=== PATIENT | male | born 1940 | race Caucasian/White ===

== ENCOUNTER 2016-12-26 05:16 | Emergency (ER) | payer OTHER ==
[~2016-12-26] VITALS: Ht 172.7 cm; Wt 97.1 kg
[~2016-12-26 05:16] MED LIST: BISACODYL10 MG PR; CELEBREX 100MG100 MG PO; ELIQUIS5 MG PO; ENALAPRIL10 MG PO; FISH OIL CONCEN1 SGL PO; MILK OF MAGNESI30 ML PO; NORVASC 5MG TAB5 MG PO; PERCOCET 325 MG1 TA2 PO; VALIUM 10 MG. T10 MG PO; ZETIA10 MG PO
--- NOTE | 2016-12-26 07:48 | ED UPPER/LOWER EXTREMITY COMPL ---
See Addendum History of Present Illness General Chief Complaint: Lower Extremity Problems Stated Complaint: BILATERIAL LEG SWELLING AND RIGHT FOOT PAIN Source: patient Exam Limitations: no limitations Vital Signs & Intake/Output Vital Signs & Intake/Output Vital Signs Date Time Temp Pulse Resp B/P Pulse O2 O2 Flow FiO2 Ox Delivery Rate 12/26 1104 98 12/26 1024 96.9 94 18 134/82 96 12/26 0749 96.8 102 18 139/89 97 12/26 0519 98.2 111 18 162/99 95 Room Air Allergies Coded Allergies: NO KNOWN ALLERGIES (06/03/15) Reconcile Medications Amlodipine (Norvasc 5MG Tab) 5 MG TAB 1 TAB PO DAILY BP (Reported) Apixaban (Eliquis) 5 MG TAB 0 PO SEE ADMIN CRITERIA dvt 2 tabs 2 times daily for 1 week then 1 tab 2 times a day for 11 weeks Bisacodyl 10 MG SUP [address] DAILY NEEDED PRN CONSTIPATION Celecoxib (Celebrex) 100 MG CAP 200 MG PO BID PRN pain Diazepam (Valium 10 Mg. 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 PT STATES HE GETS SWELLING IN LEGS FROM TIME TO TIME BUT THIS TIME IT IS BAD. PT PRESENTS WITH BLE REDNESS AND SWELLING THAT IS WARM TO THE TOUCH. PT STATES THAT EVERYTHING IRRITATES THE LEGS NOW. PT ALSO COMPLAINS OF PAIN FROM ANKLES TO TOES AND STATES THAT HE IS UNABLE TO WIGGLE TOES AND UNABLE TO WALK AT THIS TIME DUE TO THE PAIN AND SWELLING. Triage Nurses Notes Reviewed? yes HPI: Patient presents for evaluation of bilateral lower extremity pain and swelling that began about 1 week ago. Patient saw his primary care doctor and diagnosed with bronchitis and placed on amoxicillin. Since taking the amoxicillin patient has noticed bilateral leg swelling became worse overnight. In addition he is having left leg pain. He states his legs are also feeling weak. Patient has also noticed redness of both legs anteriorly. Patient states that he is still experiencing a productive cough despite the use of the amoxicillin. Patient had a left leg DVT a few years ago postoperatively. Patient describes symptoms as constant severe and worsening. Nothing seems to make it feel better. Addition patient states he has had diminished urine output and some mild dysuria. Past History Travel History Traveled to [place] past 21 day No Medical History Any Pertinent Medical History? see below for history Neurological: NONE EENT: hearing loss Cardiovascular: hypertension, hyperlipidemia Respiratory: NONE Gastrointestinal: NONE Hepatic: NONE Renal: NONE Musculoskeletal: disk herniation Psychiatric: NONE Endocrine: NONE Blood Disorders: BLOOD CLOTS L LOWER Cancer(s): NONE PHYSICAL SECURITY ENGINEER/Reproductive: NONE History of MRSA: No History of VRE: No History of CDIFF: No Surgical History Surgical History: spinal fusion Psychosocial History Who do you live with Spouse Services at Home None What is your primary language Czech Tobacco Use: Never used ETOH Use: occasional use Illicit Drug Use: denies illicit drug use Family History Hx Contributory? No Review of Systems Review of Systems Constitutional: Reports: no symptoms. EENTM: Reports: no symptoms. Respiratory: Reports: no symptoms. Cardiovascular: Reports: no symptoms. Gastrointestinal/Abdominal: Reports: no symptoms. Genitourinary: Reports: no symptoms. Musculoskeletal: Reports: see HPI. Skin: Reports: see HPI. Neurological/Psychological: Reports: no symptoms. Hematologic/Endocrine: Reports: no symptoms. Immunological: Reports: no symptoms. All Other Systems: Reviewed and Negative Physical Exam Physical Exam General Appearance: SEE BELOW Comments: Gen.: Well-nourished, well-developed, no acute respiratory distress. Head: Normocephalic, atraumatic. Eyes: Normal inspection bilaterally Ears: Normal inspection bilaterally Nose: Normal inspection Throat/mouth : Moist mucosa Neck: Supple, full range of motion, no goiter Heart: Regular rate and rhythm, no murmurs rubs or gallops Lungs: wheezes and Rhonchi bilaterally with otherwise good air entry, moderate bronchospastic cough Chest: Nontender Back: Normal range of motion Abdomen: Soft, nontender, nondistended, normal bowel sounds Extremities: Normal range of motion grossly, equal radial pulses, bilateral 1-2+ pitting lower extremity edema with mild erythema/chroni stasis dermatitis changes of the anterior legs with diffuse left lower extremity tenderness Neurologic: Cranial nerves grossly intact, speech is clear Skin: warm and dry Psychiatric: Calm, cooperative, no apparent delusions or hallucinations Progress Differential Diagnosis: dvt, pe, BRONCHITIS, PNEUMONIA, CELLULITIS, CONGESTIVE HEART FAILURE, RENAL DISEASE Plan of Care: Orders Procedure Date/time Status Add-on Test (ER Only) 12/26 08 Active URIC ACID 12/26 608 Complete BLOOD CULTURE 12/26 554 Active BLOOD CULTURE 12/26 553 Active LACTIC ACID 12/26 553 Complete D-DIMER 12/26 553 Complete COMPREHENSIVE METABOLIC PANEL 12/26 553 Complete CBC WITHOUT DIFFERENTIAL 12/26 553 Complete Laboratory Tests 12/26/16 0854: Lactic Acid Cancelled 12/26/16 0815: CBC w Diff NO MAN DIFF REQ, RBC 5.59, MCV 89.2, MCH 30.0, RDW 13.6, MPV 8.6, Gran % 75.6 H, Lymphocytes % 13.8 L, Monocytes % 9.7 H, Eosinophils % 0.9, Basophils % 0 L, Absolute Granulocytes 7.1 H, Absolute Lymphocytes 1.3, Absolute Monocytes 0.9 H, Absolute Eosinophils 0.1, Absolute Basophils 0, PUBS MCHC 33.6 12/26/16 0609: Anion Gap 11, Estimated GFR > 60, BUN/Creatinine Ratio 20.0, Glucose 124 H, Lactic Acid 2.3 H, Uric Acid 5.6, Calcium 10.4 H, Total Bilirubin 0.8, AST 52, ALT 62, Alkaline Phosphatase 81, Total Protein 7.3, Albumin 4.4, Globulin 2.9, Albumin/Globulin Ratio 1.5, D-Dimer 423 H Microbiology 12/26 608 BLOOD: Blood Culture - RECD 12/27 555 BLOOD: Blood Culture - RECD Diagnostic Imaging: Discussed w/RAD: Ultrasound. Radiology Impression: PATIENT: JUSTA FELIZ PRESENT AGE: 76 PATIENT ACCOUNT NO: [id number] : 42 LOCATION: [facility] ORDERING PHYSICIAN: CORWIN COTTO MD SERVICE DATE: 12/26/16 EXAM TYPE: US - US-EXT BILAT VENOUS DOPPLER EXAMINATION: US TRIPLEX LOWER EXTREMITY, BILATERAL CLINICAL INFORMATION: Evaluate for deep vein thrombosis. COMPARISON: None TECHNIQUE: Color-flow triplex imaging with spectral analysis and compression Doppler were performed on the bilateral lower extremities. FINDINGS: Respiratory variation, normal compression and augmented flow are noted throughout the bilateral lower extremities. The visualized common femoral vein, superficial femoral vein, profunda femoral vein, popliteal vein and midcalf peroneal and posterior tibial venous segments show no evidence of deep venous thrombosis. There is no Chi's cyst. IMPRESSION: There is no sonographic evidence of deep venous thrombosis involving the bilateral lower extremities. DICTATED BY: MUNDO GALEANO MD DATE/TIME DICTATED:12/26/16944 PEANUT BLANCHER:RANDI DATE/TIME TRANSCRIBED:12/26/16944 CONFIDENTIAL, DO NOT COPY WITHOUT APPROPRIATE AUTHORIZATION. <Electronically signed in Other Vendor System> SIGNED BY: MUNDO GALEANO MD 12/26/16 0949, PATIENT: JUSTA FELIZ PRESENT AGE: 76 PATIENT ACCOUNT NO: [id number] : 42 LOCATION: [facility] ORDERING PHYSICIAN: CORWIN COTTO MD SERVICE DATE: 12/26/16 EXAM TYPE: CAT - CTA CHEST-PULMONARY EMBOLISM EXAMINATION: CT ANGIOGRAM OF THE CHEST WITH AND WITHOUT CONTRAST (CT PULMONARY ANGIOGRAM FOR PE) CLINICAL INFORMATION: Evaluate for deep vein thrombosis. Cough , left leg pain and swelling COMPARISON: None TECHNIQUE: Prior to contrast administration, noncontrast localization images were obtained. Subsequently, multidetector volumetric imaging was performed from the thoracic inlet to below the diaphragms following the administration of 95 mL Optiray 320 intravenous contrast. No contrast reaction reported Sagittal, coronal, and MIP oblique sagittal reformatted images were obtained on the CT workstation, uploaded to PACS, and reviewed. Total exam dose-length product 394.40 mGy-cm FINDINGS: QUALITY OF STUDY/CONTRAST BOLUS: Satisfactory. PULMONARY ARTERIES: No central or segmental pulmonary emboli. THORACIC AORTA: No aneurysm or dissection. Minor atherosclerotic disease of the aortic arch with subtle intimal calcification. Minor intimal calcification of the aortic valve and coronary arteries. LUNG: Calcified nodule left upper lobe measuring approximately 0.5 cm and 0.2 cm ( series 2 image 35, 62) Lobulated pleural-based nodular opacity anterior aspect right upper lobe adjacent to hypertrophic changes right anterior first rib articulation (series 2 image 76) measuring approximately 1.4 x 1.2 cm. Patchy groundglass centrilobular nodules right upper lobe (series 2 image 92-121) additional patchy groundglass centrilobular nodules also identified in the right upper lobe (series 2 image 160, 185). There is associated minor bronchial wall thickening. Minor bronchial wall thickening with associated patchy groundglass centrilobular nodules also identified in bilateral lower lobes (series 2 image 239, 248, 251, 280.). Mild mucous plugging noted in the associated mildly ectatic lower lobe bronchi with mild wall thickness. Mild thickening bilateral major fissures. PLEURA: No evidence of pleural effusion or pneumothorax. MEDIASTINUM: Normal heart size. No pericardial effusion. No hilar or mediastinal lymphadenopathy. No evidence of septal bowing or right heart strain. CHEST WALL/AXILLA: No axillary or internal mammary lymphadenopathy. OSSEOUS STRUCTURES: Degenerative changes of the thoracic spine. No acute osseous modality. UPPER ABDOMEN: Postoperative changes noted in the gallbladder fossa. No reflux of contrast into the hepatic veins to suggest elevated right heart pressures. IMPRESSION: 1. There is no CTA evidence of acute pulmonary embolism. 2. Lobulated pleural-based nodule right upper lobe measuring approximately 1.4 x 1.2 cm. Further assessment with PET/CT recommended. 3. Multiple groundglass centrilobular nodular opacities. Associated bronchial wall thickening. These findings can be seen secondary to infectious or inflammatory etiologies. Monitoring recommended. VTE: negative According to the Fleischner Society, recommendations for pulmonary nodules are as follows: Nodule size > 8 mm in LOW RISK PATIENTS: Follow up CT at around 3, 9, and 24 months, dynamic contrast- enhanced CT, PET, and/or biopsy. Nodule size > 8 mm in HIGH RISK PATIENTS: Same as for low-risk patients. DICTATED BY: MUNDO GALEANO MD DATE/TIME DICTATED:12/26 PEANUT BLANCHER:RANDI DATE/TIME TRANSCRIBED:12/26/16951 CONFIDENTIAL, DO NOT COPY WITHOUT APPROPRIATE AUTHORIZATION. <Electronically signed in Other Vendor System> SIGNED BY: MUNDO GALEANO MD 12/26/16 1024 Comments: 12/26/2016 9:57:41 AM patient updated on test results to this point. Departure Departure Disposition: HOME OR SELF CARE Condition: Stable Clinical Impression Primary Impression: Bilateral leg edema Secondary Impressions: Bronchitis, Pulmonary nodule Referrals: ADDIE CASTILLO,Tory DEVI (PCP/Family) Additional Instructions: Azithromycin as prescribed. Albuterol as needed for cough or wheezing. Follow- up with your primary care doctor in 48-72 hours for reevaluation. Your CAT scan showed a pulmonary nodule that will require monitoring. There is also evidence of bronchitis. Return if any concerns or sudden worsening. Please note that there might be incidental findings in your evaluation that are unrelated to the current emergency department visit. Please notify your primary care doctor about this emergency department visit in order to obtain and review all of the testing performed so that these incidental findings can be monitored as needed. If you had an x-ray performed, please understand that some fractures may not be seen on the initial set of x-rays. If your symptoms persist you might need a repeat set of x-rays to check for such a fracture. If you had a laceration evaluated, please understand that foreign bodies such as glass or wood may not be visible to the naked eye or on plain x-rays. If the wound becomes red, swollen, increasingly more painful or if there is any drainage from the wound, please have it reevaluated by a physician for the possibility of a retained foreign body. Thank you for choosing the [facility] for your care. It was a pleasure to serve you today. Corwin Cotto M.D. [facility] Departure Forms: Customer Survey General Discharge Information Prescriptions: Current Visit Scripts Albuterol Sulfate (Proair Hfa) 2-4 INH INH Q6P PRN ASTHMA #1 INHAL Azithromycin (Zithromax) 1 DP PO AD #6 TAB 2 the first day followed by 1 for days 2-5
[2016-12-26 08:19] LABS: ABSOLUTE BASOPHIL COUNT 0 /CUMM (0.0-0.2); ABSOLUTE EOSINOPHIL COUNT 0.1 /CUMM (0.0-0.7); ABSOLUTE GRANULOCYTE CT 7.1 /CUMM (1.4-6.5); ABSOLUTE LYMPH COUNT 1.3 /CUMM (1.2-3.4); ABSOLUTE MONOCYTE COUNT 0.9 /CUMM (0.10-0.60); BASOPHIL % 0 % (0.0-2.0); EOSINOPHIL % 0.9 % (0-5); GRANULOCYTE % 75.6 % (42.2-75.2); HEMATOCRIT 49.8 % (42-52); MEAN CORPUSCULAR HGB CONC 33.6 G/DL (33.0-37.0); MEAN CORPUSCULAR VOLUME 89.2 FL (80.0-94.0); MEAN PLATELET VOLUME 8.6 FL (7.4-10.4); PLATELET COUNT 188 /CUMM (130-400); RBC DISTRIBUTION WIDTH 13.6 % (11.5-14.5); RED BLOOD CELL CT 5.59 /CUMM (4.70-6.10); WHITE BLOOD CELL COUNT 9.4 /CUMM (4.8-10.8)
--- NOTE | 2016-12-26 09:49 | ULTRASOUND REPORT ---
EXAMINATION: US TRIPLEX LOWER EXTREMITY, BILATERAL CLINICAL INFORMATION: Evaluate for deep vein thrombosis. COMPARISON: None TECHNIQUE: Color-flow triplex imaging with spectral analysis and compression Doppler were performed on the bilateral lower extremities. FINDINGS: Respiratory variation, normal compression and augmented flow are noted throughout the bilateral lower extremities. The visualized common femoral vein, superficial femoral vein, profunda femoral vein, popliteal vein and midcalf peroneal and posterior tibial venous segments show no evidence of deep venous thrombosis. There is no Chi's cyst. IMPRESSION: There is no sonographic evidence of deep venous thrombosis involving the bilateral lower extremities.
[2016-12-26 10:24] VITALS: BP 134/82
--- NOTE | 2016-12-26 10:24 | CT SCAN REPORT ---
EXAMINATION: CT ANGIOGRAM OF THE CHEST WITH AND WITHOUT CONTRAST (CT PULMONARY ANGIOGRAM FOR PE) CLINICAL INFORMATION: Evaluate for deep vein thrombosis. Cough, left leg pain and swelling COMPARISON: None TECHNIQUE: Prior to contrast administration, noncontrast localization images were obtained. Subsequently, multidetector volumetric imaging was performed from the thoracic inlet to below the diaphragms following the administration of 95 mL Optiray 320 intravenous contrast. No contrast reaction reported Sagittal, coronal, and MIP oblique sagittal reformatted images were obtained on the CT workstation, uploaded to PACS, and reviewed. Total exam dose-length product 394.40 mGy-cm FINDINGS: QUALITY OF STUDY/CONTRAST BOLUS: Satisfactory. PULMONARY ARTERIES: No central or segmental pulmonary emboli. THORACIC AORTA: No aneurysm or dissection. Minor atherosclerotic disease of the aortic arch with subtle intimal calcification. Minor intimal calcification of the aortic valve and coronary arteries. LUNG: Calcified nodule left upper lobe measuring approximately 0.5 cm and 0.2 cm (series 2 image 35, 62) Lobulated pleural-based nodular opacity anterior aspect right upper lobe adjacent to hypertrophic changes right anterior first rib articulation (series 2 image 76) measuring approximately 1.4 x 1.2 cm. Patchy groundglass centrilobular nodules right upper lobe (series 2 image 92-121) additional patchy groundglass centrilobular nodules also identified in the right upper lobe (series 2 image 160, 185). There is associated minor bronchial wall thickening. Minor bronchial wall thickening with associated patchy groundglass centrilobular nodules also identified in bilateral lower lobes (series 2 image 239, 248, 251, 280.). Mild mucous plugging noted in the associated mildly ectatic lower lobe bronchi with mild wall thickness. Mild thickening bilateral major fissures. PLEURA: No evidence of pleural effusion or pneumothorax. MEDIASTINUM: Normal heart size. No pericardial effusion. No hilar or mediastinal lymphadenopathy. No evidence of septal bowing or right heart strain. CHEST WALL/AXILLA: No axillary or internal mammary lymphadenopathy. OSSEOUS STRUCTURES: Degenerative changes of the thoracic spine. No acute osseous modality. UPPER ABDOMEN: Postoperative changes noted in the gallbladder fossa. No reflux of contrast into the hepatic veins to suggest elevated right heart pressures. IMPRESSION: 1. There is no CTA evidence of acute pulmonary embolism. 2. Lobulated pleural-based nodule right upper lobe measuring approximately 1.4 x 1.2 cm. Further assessment with PET/CT recommended. 3. Multiple groundglass centrilobular nodular opacities. Associated bronchial wall thickening. These findings can be seen secondary to infectious or inflammatory etiologies. Monitoring recommended. VTE: negative According to the Fleischner Society, recommendations for pulmonary nodules are as follows: Nodule size > 8 mm in LOW RISK PATIENTS: Follow up CT at around 3, 9, and 24 months, dynamic contrast-enhanced CT, PET, and/or biopsy. Nodule size > 8 mm in HIGH RISK PATIENTS: Same as for low-risk patients.
[2016-12-26] MEDS ORDERED: ZITHROMAX250 M2 PO (11:47)
[2016-12-26] MEDS ORDERED: PROAIR HFA8.5 GM INH (11:47)
[2016-12-26] MEDS ORDERED: NAPROSYN500 M1 PO (11:56)
== END 2016-12-26 12:03 ==
LOC: ERH 05:16
PROVIDERS: Pediatrics
DX: R60.0 Localized edema (principal); J40 Bronchitis, not specified as acute or chronic; R91.1 Solitary pulmonary nodule; R30.0 Dysuria; I10 Essential (primary) hypertension
CPT/HCPCS: 1263; 87040; 93970; 96374; J0131